=== PATIENT | female | born 1965 | race Caucasian/White ===

== ENCOUNTER 2019-06-06 18:30 | Emergency (ER) | payer BC ==
[~2019-06-06] VITALS: Ht 157.5 cm; Wt 59.4 kg
[~2019-06-06 18:30] MED LIST: NO MEDS
--- NOTE | 2019-06-06 18:34 | NUR ---
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
--- NOTE | 2019-06-06 18:35 | NUR ---
SEEN AND EXAMINED BY JAYME HELLER NP.
--- NOTE | 2019-06-06 18:40 | NUR ---
IV LINE ESTABLISHED BLOOD DRAWNED AND SENT TO LAB.
[2019-06-06] MEDS ORDERED: ONDANSETRON HCL/PF 4 MG/2 ML VIAL ONE (18:48)
[2019-06-06] MEDS ORDERED: NITROGLYCERIN 0.4 MG/TAB BOTTLE ONE (18:49)
[2019-06-06] MEDS ORDERED: ASPIRIN 325 MG TABLET ONE (18:49)
[2019-06-06] MEDS ORDERED: MORPHINE SULFATE INJ 4 MG/ML DISP.SYRIN ONE (18:49)
--- NOTE | 2019-06-06 18:50 | NUR ---
TECH AT BEDSIDE FOR US.
[2019-06-06] MEDS ORDERED: ONDANSETRON HCL/PF 4 MG/2 ML VIAL IVP ONE (19:00)
[2019-06-06] MEDS ORDERED: IV NS 0.9% 500 ML BAG IV ONE (19:00)
[2019-06-06] MEDS ORDERED: NITROGLYCERIN 0.4 MG/TAB BOTTLE SL ONE (19:00)
[2019-06-06] MEDS ORDERED: ASPIRIN 325 MG TABLET PO ONE (19:00)
[2019-06-06] MEDS ORDERED: MORPHINE SULFATE INJ 2 MG/ML DISP.SYRIN IV ONE (19:00)
[2019-06-06 19:06] LABS: BASOPHILS % (AUTO) 0.3 % (0.0-2.0); EOSINOPHILS % (AUTO) 1.8 % (0.0-6.0); HEMATOCRIT 42 % (33-45); HEMOGLOBIN 14.4 g/dL (11.5-14.8); LYMPHOCYTES # (AUTO) 2.2 /CMM (0.8-4.8); LYMPHOCYTES % (AUTO) 30.7 % (20.0-44.0); MEAN CORPUSCULAR HGB CONC 34 g/dl (31.0-36.0); MEAN CORPUSCULAR VOLUME 87 fL (82-100); MONOCYTES # (AUTO) 0.8 /CMM (0.1-1.30); MONOCYTES % (AUTO) 11.6 % (2.0-12.0); NEUTROPHILS % (AUTO) 55.6 % (43.0-81.0); PLATELET COUNT (AUTO) 220 /CMM (150-450); WHITE BLOOD COUNT (AUTO) 7.3 K/uL (4.3-11.0)
[2019-06-06 19:12] LABS: CALCIUM, SERUM 9.5 mg/dL (8.5-10.1); CARBON DIOXIDE 31 mmol/L (21-32); CHLORIDE 103 mmol/L (98-107); CREATININE 0.7 mg/dL (0.6-1.3); GLUCOSE 109 mg/dL (74-106); POTASSIUM 3.6 mmol/L (3.5-5.1); SODIUM SERUM 143 mmol/L (136-145); UREA NITROGEN, BLOOD 15 mg/dL (7-18)
[2019-06-06 19:18] LABS: ALANINE AMINOTRANSFERASE 42 U/L (12-78); ALBUMIN 4.2 g/dL (3.4-5.0); ALKALINE PHOSPHATASE 100 U/L (46-116); ASPARTATE AMINOTRANSFERASE 57 U/L (15-37); BILIRUBIN,DIRECT 0.2 mg/dL (0.0-0.2); BILIRUBIN,TOTAL 0.7 mg/dL (0.2-1.0); TOTAL PROTEIN, SERUM 7.9 g/dL (6.4-8.2)
--- NOTE | 2019-06-06 19:34 | NUR ---
IN BED AWAKE AND ALERT. FAMILY AT THE BED TIME. REPORTED FEELING MUCH BETTER, VSS. WILL CONT TO MONITOR ,
--- NOTE | 2019-06-06 21:18 | NUR ---
Patient is resting comfortably in bed with eyes closed. Easily aroused. VSS
--- NOTE | 2019-06-06 22:40 | NUR ---
IV removed. Catheter intact and site benign. Pressure and 4x4 applied to site. No bleeding noted.
--- NOTE | 2019-06-06 22:43 | NUR ---
Patient discharged to home in stable condition. Written and verbal after care instructions given. Patient verbalizes understanding of instruction.
[2019-06-06 22:44] VITALS: BP 117/65
== END 2019-06-06 22:46 | disposition home or self-care (01) ==
LOC: ER 18:30
DX: K80.50 Calculus of bile duct without cholangitis or cholecystitis without obstruction (principal); R07.89 Other chest pain; G89.29 Other chronic pain; M54.9 Dorsalgia, unspecified; Z98.890 Other specified postprocedural states
CPT/HCPCS: 36415; 71045; 76705; 80048; 80076; 83690; 84484 ×2; 85025; 93005 ×3; 96374; 96375; 99284; J2270; J2405; J7040

== ENCOUNTER 2022-01-14 10:42 | Emergency (ER) | payer BC ==
[~2022-01-14] VITALS: Ht 165.1 cm; Wt 57.6 kg
--- NOTE | 2022-01-14 10:51 | NUR ---
URINE COLLECTED AND SENT TO THE LAB
--- NOTE | 2022-01-14 10:52 | NUR ---
BIB DAUGHTER C/O PAIN UPON URINATION X 3 DAYS AND BLOOD IN THE URINE STARTED YESTERDAY. WILL CONTINUE TO MONITOR THE PATIENT.
[2022-01-14 11:13] LABS: BILIRUBIN,URINE NEGATIVE (NEGATIVE); COLOR,URINE YELLOW (YELLOW); LEUKOCYTE ESTERASE ,URINE MODERATE (NEGATIVE); NITRITE, URINE NEGATIVE (NEGATIVE); PROTEIN,URINE NEGATIVE (NEGATIVE); UGLUCOSE NEGATIVE (NEGATIVE); UROBILINOGEN,URINE 0.2 EU/dL (0.2)
[2022-01-14 11:47] LABS: RBC,URINE 51-80 /HPF (0-2); WBC,URINE 21-50 /HPF (0-3)
[2022-01-14 11:48] LABS: BACTERIA,URINE None seen /HPF (None Seen); SQUAMOUS EPITHELIAL CELL,UR Few /HPF (None Seen)
[2022-01-14] MEDS ORDERED: CEFTRIAXONE 1GM BAG (ER ONLY) 50 ML IV ONE (12:27)
[2022-01-14] MEDS ORDERED: KETOROLAC TROMETHAMINE INJ 30 MG/ML VIAL ONE (12:28)
[2022-01-14] MEDS ORDERED: KETOROLAC TROMETHAMINE INJ 30 MG/ML VIAL IV ONE (12:30)
[2022-01-14] MEDS ORDERED: IV NS 0.9% 1,000 ML IV ONE (12:30)
[2022-01-14] MEDS ORDERED: CEFTRIAXONE 1 G in IV D5W 50 ML IV ONE (12:30)
[2022-01-14 12:45] LABS: BASOPHILS % (AUTO) 0.4 % (0.0-2.0); EOSINOPHILS % (AUTO) 1.5 % (0.0-6.0); HEMATOCRIT 42 % (33-45); LYMPHOCYTES # (AUTO) 1.6 K/uL (0.8-4.8); LYMPHOCYTES % (AUTO) 16.4 % (20.0-44.0); MEAN CORPUSCULAR HGB CONC 33 g/dl (31.0-36.0); MEAN CORPUSCULAR VOLUME 86 fL (82-100); MONOCYTES # (AUTO) 0.7 K/uL (0.1-1.30); MONOCYTES % (AUTO) 6.8 % (2.0-12.0); NEUTROPHILS # (AUTO) 7.5 K/uL (1.8-8.9); NEUTROPHILS % (AUTO) 74.9 % (43.0-81.0); PLATELET COUNT (AUTO) 221 K/uL (150-450); RED BLOOD CELL COUNT(AUTO) 4.94 MIL/uL (4.0-5.2)
[2022-01-14] MEDS ORDERED: CEPH500C2 PO (13:19)
[2022-01-14] MEDS ORDERED: IBUP-1955 PO (13:19)
[2022-01-14 13:25] LABS: CALCIUM, SERUM 9.2 mg/dL (8.5-10.1); CREATININE 0.6 mg/dL (0.6-1.3); POTASSIUM 3.8 mmol/L (3.5-5.1)
--- NOTE | 2022-01-14 13:50 | NUR ---
IV removed. Catheter intact and site benign. Pressure and 4x4 applied to site. No bleeding noted.Patient discharged to home in stable condition. Written and verbal after care instructions given. Patient verbalizes understanding of instruction.
[2022-01-14 13:52] VITALS: BP 121/77
== END 2022-01-14 13:52 | disposition home or self-care (01) ==
LOC: ER 10:46
DX: N39.0 Urinary tract infection, site not specified (principal); G89.29 Other chronic pain; Z87.440 Personal history of urinary (tract) infections; Z87.898 Personal history of other specified conditions; Z79.1 Long term (current) use of non-steroidal anti-inflammatories (NSAID); Z79.899 Other long term (current) drug therapy
CPT/HCPCS: 36415; 74176; 80048; 81001; 85025; 87077; 87086; 87186; 96365; 96375; 99284; J0696; J1885; J7030